=== PATIENT | male | born 1960 | race Caucasian/White ===

== ENCOUNTER 2024-01-01 11:17 | Outpatient (OUT) | payer BC, SELFPAY ==
[2024-01-01 12:11] LABS: Basophils Absolute Auto 0.1 10^3/uL (0.0-0.1); Basophils Percent Auto 0.9 % (0.2-2.0); Eosinophils Absolute Auto 0.1 10^3/uL (0.0-0.7); Eosinophils Percent Auto 0.9 % (0.9-7.0); Hematocrit 40.4 % (42.0-54.0); Hemoglobin 13.3 g/dL (14.0-18.0); Immature Granulocytes Abs Auto 0.01 10^3/uL (0.00-0.03); Immature Granulocytes Pct Auto 0.2 % (0.0-0.5); Lymphocytes Absolute Auto 1.7 10^3/uL (1.2-3.8); Mean Corpuscular HGB Conc 32.9 g/dL (29.9-35.2); Mean Corpuscular Hemoglobin 31.7 pg (25.9-34.0); Mean Corpuscular Volume 96.2 fL (80.0-94.0); Mean Platelet Volume 9.2 fL (9.5-13.5); Monocytes Absolute Auto 0.7 10^3/uL (0.3-0.8); Monocytes Percent Auto 11.9 % (1.7-12.0); Neutrophils Absolute Auto 3.3 10^3/uL (1.4-6.5); Neutrophils Percent Auto 57.1 % (43.0-75.0); Platelet Count 208 10^3/uL (150-450); Red Cell Distribution Width 13.6 % (11.0-15.0); White Blood Count 5.8 10^3/uL (4.0-11.0)
[2024-01-01 12:21] LABS: Microalbumin Urine Random 4.5 mg/dL (<=30.0)
[2024-01-01 13:23] LABS: Alanine Aminotransferase 85 U/L (16-63); Albumin Globulin Ratio 1.1; Albumin Level 3.9 g/dL (3.4-5.0); Alkaline Phosphatase 94 U/L (46-116); Anion Gap 15.2; Aspartate Amino Transferase 108 U/L (15-37); BUN Creatinine Ratio 16.9; Bilirubin Direct 0.3 mg/dL (0.0-0.2); Bilirubin Total 0.9 mg/dL (0.2-1.0); Calcium 9.1 mg/dL (8.5-10.1); Carbon Dioxide 28.5 mmol/L (21.0-32.0); Chloride 97 mmol/L (98-107); Chol HDL Ratio 1.6; Cholesterol 223 mg/dL (<=200); Estimated GFR (African America >60 (>=60); Estimated GFR (Non-African Ame >60 (>=60); Globulin 3.6 g/dL; Glucose 109 mg/dL (74-106); HDL Cholesterol 140 mg/dL (40-60); Potassium 3.7 mmol/L (3.5-5.1); Sodium 137 mmol/L (136-145); Thyroid Stimulating Hormone 1.427 uIU/mL (0.358-3.740); Total Protein 7.5 g/dL (6.4-8.2); Triglycerides 68 mg/dL (<=150); VLDL CHOLESTEROL 13.6 mg/dL
[2024-01-01 14:06] LABS: Prostate Specific Antigen Dx 2.34 ng/mL (<=4.00)
[2024-01-01 14:15] LABS: Estimated Average Glucose 120 mg/dL; Glycohemoglobin A1C 5.8 % (4.5-6.2)
== END 2024-01-01 11:18 | disposition home or self-care (01) ==
LOC: LAB 11:21
PROVIDERS: PCP Family Medicine; Visit Provider Family Medicine
DX: Z00.00 Encounter for general adult medical examination without abnormal findings (principal); E55.9 Vitamin D deficiency, unspecified; E11.65 Type 2 diabetes mellitus with hyperglycemia
CPT/HCPCS: 36415; 80048; 80061; 80076; 82043; 82306; 83036; 84153; 84443; 85025

== ENCOUNTER 2024-09-02 11:51 | Outpatient (OUT) | payer BC, SELFPAY ==
[2024-09-02 12:38] LABS: Estimated Average Glucose 134 mg/dL; Glycohemoglobin A1C 6.3 % (4.5-6.2)
== END 2024-09-02 11:52 | disposition home or self-care (01) ==
LOC: LAB 11:53
PROVIDERS: PCP Family Medicine; Visit Provider Family Medicine
DX: E11.65 Type 2 diabetes mellitus with hyperglycemia (principal)
CPT/HCPCS: 36415; 83036